=== PATIENT | male | born 1945 | race Caucasian/White ===

== ENCOUNTER 2016-09-03 07:34 | Inpatient (IN) | payer MEDICARE, BC, OTHER ==
[~2016-09-03] VITALS: Ht 175.3 cm; Wt 102.0 kg
[~2016-09-03 07:34] MED LIST: ATEN25TA PO; ATOR10TA9 PO; BUDE10.22 INH; CLON1TAB23 PO; DULO30CA2 PO; IRBE1TAB13 PO; IRBE300T16 PO; MELA3TAB PO; METH10TA6 PO; Magnesium Oxide PO; OMEP40CA6 PO; ZOLP10TA5 PO
[2016-09-03] MEDS ORDERED: ALBUTEROL/IPRATROPIUM 2.5MG/0.5MG, 3 ML NPPB ONE (08:00)
[2016-09-03] MEDS ORDERED: ALBUTEROL/IPRATROPIUM 2.5MG/0.5MG, 3 ML ONE ×2 (08:08→10:37)
[2016-09-03] MEDS ORDERED: OMEP40CA6 PO (08:12)
[2016-09-03] MEDS ORDERED: PRED-402 PO (08:12)
[2016-09-03] MEDS ORDERED: METO50TA82 PO (08:12)
[2016-09-03] MEDS ORDERED: HYDR-879 PO (08:12)
[2016-09-03] MEDS ORDERED: PRAZ2CAP2 PO (08:12)
[2016-09-03] MEDS ORDERED: [UNRECOGNIZED DRUG - OTHER] PO (08:12)
[2016-09-03] MEDS ORDERED: ARIP20TA8 PO (08:12)
[2016-09-03 08:24] LABS: BLOOD UREA NITROGEN 20 mg/dL (7-18)
[2016-09-03 08:29] LABS: IS PT STATUS REG ER OR PRE ER? YES
[2016-09-03 08:31] LABS: HEMOGLOBIN 14.2 g/dL (13.7-18.0)
[2016-09-03] MEDS ORDERED: SODIUM CHLORIDE 0.9% 1,000 ML IV ONE (08:45)
[2016-09-03] MEDS ORDERED: ASPIRIN 81 MG TABLET CHEW PO ONE (09:00)
[2016-09-03] MEDS ORDERED: ASPIRIN 81 MG TABLET CHEW ONE (09:01)
[2016-09-03] MEDS ORDERED: ACETAMINOPHEN 325 MG TABLET PO PRN (10:00)
[2016-09-03] MEDS ORDERED: ENALAPRILAT 1.25 MG/ML, 2ML IVPush PRN (10:00)
[2016-09-03] MEDS ORDERED: POLYETHYLENE GLYCOL 17 GM PACKET PO PRN (10:00)
[2016-09-03] MEDS ORDERED: OXYcodone IR 5MG TABLET PO PRN (10:00)
[2016-09-03] MEDS ORDERED: MORPHINE SULFATE 4 MG/ML, 1ML IVPush PRN (10:00)
[2016-09-03] MEDS ORDERED: DOCUSATE 100 MG CAPSULE PO PRN (10:00)
[2016-09-03] MEDS ORDERED: TEMPLATE NON-FORMULARY MED. (Budesonide/Formoterol Fumarate (Symbicort 80-4.5 Mcg Inhaler) INH SCH (10:00)
[2016-09-03] MEDS ORDERED: BISACODYL 10 MG SUPP PR PRN (10:00)
[2016-09-03] MEDS ORDERED: ONDANSETRON 2MG/ML, 2ML IVP PRN (10:00)
[2016-09-03] MEDS ORDERED: HEPARIN 5,000 UNITS/ML, 1ML ONE (10:29)
[2016-09-03] MEDS ORDERED: methylPREDNISolone SOD SUCC 125 MG/2 ML ONE (10:29)
[2016-09-03] MEDS: ALBUTEROL/IPRATROPIUM 2.5MG/0.5MG, 3 ML NPPB SCH ×3 (10:41→21:20)
[2016-09-03] MEDS: methylPREDNISolone SOD SUCC 125 MG/2 ML IVPush SCH ×3 (10:51→22:08)
[2016-09-03] MEDS: HEPARIN 5,000 UNITS/ML, 1ML SQ SCH ×2 (10:52→18:43)
[2016-09-03] MEDS: ALBUTEROL SULFATE 2.5 MG/3 ML NPPB SCH ×2 (11:00→16:00)
[2016-09-03] MEDS: IRBESARTAN 300 MG TABLET PO SCH (11:02)
[2016-09-03 14:24] LABS: IS PT STATUS REG ER OR PRE ER? NO
[2016-09-03 14:55] VITALS: BP 138/70
[2016-09-03] MEDS ORDERED: MAGNESIUM SULFATE PMX 2GM/50ML 50 ML IV ONE (17:00)
[2016-09-03 18:28] VITALS: BP 165/80
[2016-09-03 19:09] LABS: IS PT STATUS REG ER OR PRE ER? NO
[2016-09-03] MEDS: HYDROcodone/APAP 10/325 MG TABLET PO SCH (20:51)
[2016-09-03] MEDS: PRAZOSIN 2 MG CAPSULE PO SCH (20:51)
[2016-09-03] MEDS: TEMAZEPAM 15 MG CAPSULE PO PRN (22:08)
[2016-09-03] MEDS: ATORVASTATIN 10 MG TABLET PO SCH (22:12)
[2016-09-04] MEDS: HEPARIN 5,000 UNITS/ML, 1ML SQ SCH ×3 (02:00→17:44)
[2016-09-04 02:15] VITALS: BP 155/73
[2016-09-04] MEDS: methylPREDNISolone SOD SUCC 125 MG/2 ML IVPush SCH ×4 (04:11→22:33)
[2016-09-04 05:33] LABS: HEMOGLOBIN 14.1 g/dL (13.7-18.0)
[2016-09-04 05:45] LABS: BLOOD UREA NITROGEN 22 mg/dL (7-18)
[2016-09-04 05:51] LABS: ASPARTATE AMINO TRANSFERASE 12 U/L (15-37)
[2016-09-04 06:27] VITALS: BP 160/85
[2016-09-04] MEDS: ALBUTEROL/IPRATROPIUM 2.5MG/0.5MG, 3 ML NPPB SCH ×4 (07:00→20:00)
[2016-09-04] MEDS ORDERED: REGADENOSON 0.4 MG/5 ML SYRINGE ONE (07:43)
[2016-09-04] MEDS: HYDROcodone/APAP 10/325 MG TABLET PO SCH ×2 (11:30→21:00)
[2016-09-04] MEDS: IRBESARTAN 300 MG TABLET PO SCH (11:30)
[2016-09-04] MEDS: ARIPIPRAZOLE 10 MG TABLET PO SCH (11:30)
[2016-09-04] MEDS: MAGNESIUM OXIDE 400 MG TABLET PO SCH (11:31)
[2016-09-04] MEDS: METOPROLOL TARTRATE 50 MG TABLET PO SCH (11:31)
[2016-09-04] MEDS: OMEPRAZOLE 20 MG CAPSULE.DR PO SCH (11:31)
[2016-09-04] MEDS: HYDROCHLOROTHIAZIDE 25 MG TABLET PO SCH (12:13)
[2016-09-04 13:28] VITALS: BP 131/82
[2016-09-04 19:05] VITALS: BP 178/102
[2016-09-04] MEDS: ATORVASTATIN 10 MG TABLET PO SCH (21:01)
[2016-09-04] MEDS: PRAZOSIN 2 MG CAPSULE PO SCH (21:01)
[2016-09-05] MEDS: TEMAZEPAM 15 MG CAPSULE PO PRN (01:02)
[2016-09-05 01:09] VITALS: BP 184/93
[2016-09-05] MEDS: HEPARIN 5,000 UNITS/ML, 1ML SQ SCH ×2 (01:47→09:52)
[2016-09-05] MEDS: methylPREDNISolone SOD SUCC 125 MG/2 ML IVPush SCH ×2 (04:26→09:51)
[2016-09-05] MEDS: ALBUTEROL/IPRATROPIUM 2.5MG/0.5MG, 3 ML NPPB SCH ×2 (07:28→11:09)
[2016-09-05 07:56] VITALS: BP 156/82
[2016-09-05] MEDS: IRBESARTAN 300 MG TABLET PO SCH (09:42)
[2016-09-05] MEDS: ARIPIPRAZOLE 10 MG TABLET PO SCH (09:42)
[2016-09-05] MEDS: HYDROCHLOROTHIAZIDE 25 MG TABLET PO SCH (09:43)
[2016-09-05] MEDS: METOPROLOL TARTRATE 50 MG TABLET PO SCH (09:44)
[2016-09-05] MEDS: MAGNESIUM OXIDE 400 MG TABLET PO SCH (09:44)
[2016-09-05] MEDS: OMEPRAZOLE 20 MG CAPSULE.DR PO SCH (09:45)
[2016-09-05] MEDS: HYDROcodone/APAP 10/325 MG TABLET PO SCH (09:50)
[2016-09-05 13:28] VITALS: BP 115/68
[2016-09-05] MEDS ORDERED: HYDR25TA6 PO (15:28)
[2016-09-05] MEDS ORDERED: DOCU-30 PO (15:28)
[2016-09-05] MEDS ORDERED: PRED5TAB PO (15:28)
[2016-09-05] MEDS ORDERED: IPRA3AMP NPPB (15:28)
== END 2016-09-05 16:47 | disposition home or self-care (01) | DRG 292 ==
LOC: ED 08:58 → EDIP 09:47 → 5SO 13:09 → DCLOUNGE 09-05 16:16
PROVIDERS: ADMIT Internal Medicine; ATTEND Internal Medicine
DX: I11.0 Hypertensive heart disease with heart failure (principal); J45.901 Unspecified asthma with (acute) exacerbation; J44.1 Chronic obstructive pulmonary disease with (acute) exacerbation; I50.32 Chronic diastolic (congestive) heart failure; R74.8 Abnormal levels of other serum enzymes; E78.5 Hyperlipidemia, unspecified; F41.1 Generalized anxiety disorder; F43.10 Post-traumatic stress disorder, unspecified; G89.29 Other chronic pain; M54.9 Dorsalgia, unspecified; M54.2 Cervicalgia; F10.20 Alcohol dependence, uncomplicated; Z87.891 Personal history of nicotine dependence
CPT/HCPCS: 36415; 71010; 78452; 80048; 80053; 80061; 82040; 82962; 83036; 83735; 83880; 84439; 84443; 84484; 85025; 93005; 93017; 93306; 94640; 96360; 96361; J1644; J2785; J7620; A9502; C9898; J2930; J3475; J7030

== ENCOUNTER → 2018-04-28 | Outpatient (CLI) | payer OTHER ==
[~2018-04-28] MED LIST changes: +ARIP20TA5 PO; +DOCU-131 PO; +HYDR-3622 PO; +HYDR25TA6 PO; +IPRA3AMP30 NPPB; -MELA3TAB PO; +MELA3TAB2 PO; +METO50TA82 PO; +PRAZ2CAP2 PO; +PRED-402 PO; +PRED5TAB PO; +[UNRECOGNIZED DRUG - OTHER] PO
== END | disposition home or self-care (01) ==
LOC: RAD 13:44
PROVIDERS: ATTEND Orthopaedic Surgery
DX: J44.9 Chronic obstructive pulmonary disease, unspecified (principal)
CPT/HCPCS: 71046; 94060; 94726; 94729

== ENCOUNTER → 2018-05-08 | Outpatient (CLI) | payer MEDICARE, BC, OTHER ==
[~2018-05-08] MED LIST changes: +OMNIPAQUE 350 MG/ML, 75ML BOTTLE ONE
[2018-05-08 10:59] LABS: CREATININE 1.61 mg/dL (0.7-1.3)
== END | disposition home or self-care (01) ==
LOC: RAD 10:16
PROVIDERS: ATTEND Family Medicine
DX: C61 Malignant neoplasm of prostate (principal); R91.8 Other nonspecific abnormal finding of lung field; Z19.2 Hormone resistant malignancy status
CPT/HCPCS: 36415; 71260; 82565; Q9967

== ENCOUNTER → 2018-05-22 | Outpatient (CLI) | payer MEDICARE, BC, OTHER ==
[~2018-05-22] MED LIST changes: -OMNIPAQUE 350 MG/ML, 75ML BOTTLE ONE
== END | disposition home or self-care (01) ==
LOC: PETCFH 11:37
PROVIDERS: ATTEND Licensed Practical Nurse
DX: M47.816 Spondylosis without myelopathy or radiculopathy, lumbar region (principal); R91.1 Solitary pulmonary nodule; I25.10 Atherosclerotic heart disease of native coronary artery without angina pectoris; I71.4 Abdominal aortic aneurysm, without rupture; F10.10 Alcohol abuse, uncomplicated; Z87.891 Personal history of nicotine dependence
CPT/HCPCS: 78815; A9552

== ENCOUNTER → 2018-06-02 | Outpatient (CLI) | payer MEDICARE, BC ==
[~2018-06-02] MED LIST changes: +ALBU8.5H8 IH; +ASPI-496 PO; +IRBE1TAB37 PO; +MAGN250T8 PO; +METH5TAB6 PO; +QUET200T PO; +SERT100T32 PO; +UMEC1DIS INH
[2018-06-02 09:33] LABS: MEAN CORPUSCULAR VOLUME 95.6 fL (81-97); RED BLOOD COUNT 4.32 x10^6/uL (4.38-5.82)
[2018-06-02 09:34] LABS: BASOPHILS # (AUTO) 0.05 x10^3/uL (0-0.1); BASOPHILS % (AUTO) 1 % (0-1); EOSINOPHILS # (AUTO) 0.25 x10^3/uL (0-0.4); EOSINOPHILS % (AUTO) 5 % (1-7); LYMPHOCYTES % (AUTO) 21 % (22-44); MD NO; MEAN CORPUSCULAR HEMOGLOBIN 32.7 pg (27.5-34.5); MEAN CORPUSCULAR HGB CONC 34.2 g/dL (33.2-36.2); MEAN PLATELET VOLUME 8.4 fL (7.4-10.4); MONOCYTES # (AUTO) 0.43 x10^3/uL (0.2-0.8); MONOCYTES % (AUTO) 9 % (2-9); NEUTROPHILS # (AUTO) 3.03 x10^3/uL (1.8-6.8); NEUTROPHILS % (AUTO) 64 % (42-75); PLATELET COUNT 217 x10^3/uL (130-400); RED CELL DISTRIBUTION WIDTH 15.4 % (9.4-14.8)
[2018-06-02 09:45] LABS: INTERNATIONAL NORMALIZED RATIO 1.04 (0.93-1.1)
[2018-06-02 09:46] LABS: ALANINE AMINOTRANSFERASE 21 U/L (12-78); ALBUMIN 3.9 g/dL (3.4-5.0); ANION GAP 3 mmol/L (5-15); CALCIUM 9.3 mg/dL (8.5-10.1); CHLORIDE 106 mmol/L (98-107); CREATININE 1.76 mg/dL (0.7-1.3)
[2018-06-02 09:48] LABS: ALKALINE PHOSPHATASE 86 U/L (45-117); BILIRUBIN,TOTAL 0.5 mg/dL (0.2-1.0); TOTAL PROTEIN 7.1 g/dL (6.4-8.2)
== END | disposition home or self-care (01) ==
LOC: STAR 08:18
PROVIDERS: ATTEND Surgery
DX: Z01.818 Encounter for other preprocedural examination (principal)
CPT/HCPCS: 36415; 80053; 85025; 85610; 85730; 93005

== ENCOUNTER 2018-06-15 00:14 | Observation (INO) | payer MEDICARE, BC ==
[~2018-06-15] VITALS: Ht 177.8 cm; Wt 105.8 kg
[~2018-06-15 00:14] MED LIST changes: +IBUPROFEN PO
[2018-06-15 00:51] LABS: BASOPHILS # (AUTO) 0.04 x10^3/uL (0-0.1); BASOPHILS % (AUTO) 1 % (0-1); EOSINOPHILS # (AUTO) 0.36 x10^3/uL (0-0.4); EOSINOPHILS % (AUTO) 6 % (1-7); LYMPHOCYTES # (AUTO) 0.91 x10^3/uL (1-3.4); LYMPHOCYTES % (AUTO) 16 % (22-44); MD NO; MEAN CORPUSCULAR HEMOGLOBIN 32.7 pg (27.5-34.5); MEAN CORPUSCULAR HGB CONC 34.5 g/dL (33.2-36.2); MEAN CORPUSCULAR VOLUME 94.9 fL (81-97); MEAN PLATELET VOLUME 7.8 fL (7.4-10.4); MONOCYTES # (AUTO) 0.56 x10^3/uL (0.2-0.8); MONOCYTES % (AUTO) 10 % (2-9); NEUTROPHILS % (AUTO) 68 % (42-75); PLATELET COUNT 288 x10^3/uL (130-400); RED BLOOD COUNT 3.82 x10^6/uL (4.38-5.82); RED CELL DISTRIBUTION WIDTH 14.6 % (9.4-14.8)
--- NOTE | 2018-06-15 00:55 | NUR ---
BREAK RN-INITIAL CONTACT WITH PTMaya SANTILLAN MD AT BEDSIDE FOR ASSESSMENT.
[2018-06-15] MEDS ORDERED: ALBUTEROL/IPRATROPIUM 2.5MG/0.5MG, 3 ML NPPB ONE (01:00)
[2018-06-15] MEDS ORDERED: methylPREDNISolone SOD SUCC 125 MG/2 ML IVP ONE (01:00)
[2018-06-15] MEDS ORDERED: SODIUM CHLORIDE FLUSH 10ML SYR IVF ONE (01:00)
[2018-06-15 01:03] LABS: ALBUMIN 2.9 g/dL (3.4-5.0); ANION GAP 9 mmol/L (5-15); CALCIUM 8.1 mg/dL (8.5-10.1); CHLORIDE 105 mmol/L (98-107)
[2018-06-15] MEDS ORDERED: ALBUTEROL/IPRATROPIUM 2.5MG/0.5MG, 3 ML ONE (01:03)
[2018-06-15 01:08] LABS: ALANINE AMINOTRANSFERASE 17 U/L (12-78); ALKALINE PHOSPHATASE 65 U/L (45-117); BILIRUBIN,TOTAL 0.4 mg/dL (0.2-1.0); CREATININE 1.42 mg/dL (0.7-1.3); TOTAL PROTEIN 6.2 g/dL (6.4-8.2); TROPONIN I 0.023 ng/mL (0.000-0.045)
[2018-06-15] MEDS ORDERED: methylPREDNISolone SOD SUCC 125 MG/2 ML ONE (01:22)
--- NOTE | 2018-06-15 01:55 | NUR ---
REPORT TO LETICIA JENKINS FOR ROOM [id number]
[2018-06-15 02:16] VITALS: BP 108/61
[2018-06-15] MEDS ORDERED: ACETAMINOPHEN 325 MG TABLET PO PRN (03:30)
[2018-06-15] MEDS ORDERED: ONDANSETRON ODT 4 MG PO PRN (03:30)
[2018-06-15] MEDS ORDERED: GUAIFENESIN/DM 200-20MG, 10ML UDC PO PRN (03:30)
[2018-06-15] MEDS ORDERED: ALBUTEROL/IPRATROPIUM 2.5MG/0.5MG, 3 ML NPPB PRN (03:30)
[2018-06-15] MEDS ORDERED: TEMAZEPAM 15 MG CAPSULE PO PRN (03:30)
[2018-06-15] MEDS ORDERED: DOCUSATE 100 MG CAPSULE PO PRN (03:30)
[2018-06-15] MEDS: methylPREDNISolone SOD SUCC 40 MG/ML IVPush SCH ×2 (04:18→15:30)
[2018-06-15] MEDS ORDERED: ASPIRIN 81 MG TABLET EC PO SCH (06:00)
[2018-06-15 07:27] VITALS: BP 169/73
[2018-06-15] MEDS: ALBUTEROL/IPRATROPIUM 2.5MG/0.5MG, 3 ML NPPB SCH ×2 (07:40→14:22)
[2018-06-15] MEDS ORDERED: METHIMAZOLE 5 MG TAB PO SCH (09:00)
[2018-06-15] MEDS ORDERED: DOXY100T PO (14:36)
[2018-06-15] MEDS ORDERED: PRED10TA PO (14:36)
[2018-06-15 14:48] VITALS: BP 158/76
[2018-06-15] MEDS ORDERED: ATORVASTATIN 10 MG TABLET PO SCH (21:00)
== END 2018-06-15 17:16 | disposition home or self-care (01) ==
LOC: ED 00:44 → EDIP 01:25 → INTOOBSV 01:25 → 4EST 02:05
PROVIDERS: ADMIT Internal Medicine; ATTEND Internal Medicine
DX: J44.1 Chronic obstructive pulmonary disease with (acute) exacerbation (principal); J96.21 Acute and chronic respiratory failure with hypoxia; E05.90 Thyrotoxicosis, unspecified without thyrotoxic crisis or storm; E78.5 Hyperlipidemia, unspecified; I10 Essential (primary) hypertension; N17.0 Acute kidney failure with tubular necrosis; Z87.891 Personal history of nicotine dependence; Z99.81 Dependence on supplemental oxygen; F43.10 Post-traumatic stress disorder, unspecified
CPT/HCPCS: 36415; 71045; 80053; 83880; 84484; 85025; 93005; 94640; 96374; 96376; 99284; G0378; J2920; J2930; J7620

== ENCOUNTER 2018-12-07 08:54 | Outpatient (CLI) | payer MEDICARE | END 2018-12-07 23:59 | disposition home or self-care (01) | LOC: CFH 08:54 | PROVIDERS: ATTEND Internal Medicine | DX: R91.1 Solitary pulmonary nodule (principal); I25.10 Atherosclerotic heart disease of native coronary artery without angina pectoris; M51.34 Other intervertebral disc degeneration, thoracic region; M25.78 Osteophyte, vertebrae; Z98.890 Other specified postprocedural states | CPT/HCPCS: 71250 ==

== ENCOUNTER → 2019-06-10 | Outpatient (CLI) | payer MEDICARE ==
[~2019-06-10] MED LIST changes: +DOXY100T PO; -MELA3TAB2 PO; +MELA3TAB56 PO; +OMEP40CA42 PO; -OMEP40CA6 PO; +PRED10TA PO
== END | disposition home or self-care (01) ==
LOC: CFH 10:18
PROVIDERS: ATTEND Internal Medicine
DX: R91.1 Solitary pulmonary nodule (principal); J44.9 Chronic obstructive pulmonary disease, unspecified
CPT/HCPCS: 71250

== ENCOUNTER 2019-12-09 09:05 | Outpatient (CLI) | payer MEDICARE ==
[~2019-12-09 09:05] MED LIST changes: -IRBE300T16 PO; +IRBE300T8 PO; +MELA3TAB31 PO; -MELA3TAB56 PO
== END 2019-12-09 23:59 | disposition home or self-care (01) ==
LOC: CFH 09:05
PROVIDERS: ATTEND Internal Medicine
DX: R91.8 Other nonspecific abnormal finding of lung field (principal)
CPT/HCPCS: 71250

== ENCOUNTER 2020-06-09 09:24 | Outpatient (CLI) | payer MEDICARE | END 2020-06-09 23:59 | disposition home or self-care (01) | LOC: CFH 09:24 | PROVIDERS: ATTEND Internal Medicine | DX: R91.1 Solitary pulmonary nodule (principal) | CPT/HCPCS: 71250 ==

== ENCOUNTER → 2020-12-08 | Outpatient (CLI) | payer MEDICARE ==
[~2020-12-08] MED LIST changes: -OMEP40CA42 PO; +OMEP40CA8 PO
== END | disposition home or self-care (01) ==
LOC: CFH 10:20
PROVIDERS: ATTEND Internal Medicine
DX: J92.9 Pleural plaque without asbestos (principal); R91.1 Solitary pulmonary nodule; J44.9 Chronic obstructive pulmonary disease, unspecified
CPT/HCPCS: 71250